=== PATIENT | male | born 1985 | race Hispanic/Latino ===

== ENCOUNTER 2023-11-16 09:13 | Emergency (ER) | payer OTHER, SELFPAY ==
--- NOTE | 2023-11-16 09:16 | ED_ITS ---
HPI - Extremity Injury (Upper) General Chief Complaint: Wound/Laceration Stated Complaint: wound L hand Time Seen by Provider: 11/16/23 09:16 History of Present Illness HPI narrative: Patient is a 38-year-old male with no significant past medical history comes into the ED from home complaining of laceration to his left hand while he was at work over 12 hours ago. 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 States that he did thoroughly wash it states that he did not present to the ED immediately because he did not think he needed stitches, however when he was at home with family states that he should be evaluated. He states that he is up-to-date on his tetanus, states it has been within 5 years. He has not complaining of any other symptoms. Patient is right-handed. Related Data Allergies Allergy/AdvReac Type Severity Reaction Status Date / Time No Known Drug Allergies Allergy Verified 11/16/23 09:24 Review of Systems Review of Systems Narrative: General: Denies fever, chills, weight loss HEENT: Denies headache, eye drainage, eye irritation, head trauma, sore throat, voice change Cardiovascular: Denies any chest pain, palpitations, shortness of breath, tachycardia Respiratory: Denies any shortness of breath, cough, wheeze, stridor GI/: Denies any abdominal pain, nausea, vomiting, diarrhea, bright red blood per rectum, melanotic stools, urinary frequency, urinary retention, dysuria, hematuria MSK: Denies any joint pain, muscle pains, swelling Skin: 2-1/2 cm laceration to the palmar aspect of the left hand Neuro: Denies any headache, lightheadedness, dizziness, fainting, weakness Psych: Denies SI/HI Patient History Social History Smoking Status: Never smoker Exam Narrative Exam Narrative: General: Cooperative, comfortable, well-developed, not in acute distress HEENT: Normocephalic, atraumatic, PERRLA, normal sclera, eyelids normal, Neck: Active full range of motion, atraumatic Chest: Normal to inspection, negative crepitus, no overlying erythema ecchymosis Respiratory: Normal respiratory effort, not in acute respiratory distress, clear to auscultation bilaterally negative cough, wheeze, tachypnea, rhonchi, rales Cardiology: Regular rate rhythm negative gallop, murmur, rubs GI/: Normal to inspection, soft, nonrigid, no tenderness to palpation, exam deferred MSK: Full range of active range of motion of all 4 extremities, atraumatic Skin: 2-1/2 cm laceration to the palmar aspect of the left hand superficial does not involve the tendon neurovascularly intact no other deformities Neuro: Alert awake oriented x3, moves all 4 extremities spontaneously, cranial nerves intact, able to answer all questions appropriately follows commands appropriately Psych: Cooperative, negative suicidal or homicidal ideations Initial Vital Signs Initial Vital Signs: Vital Signs Temperature 97.8 F 11/16/23 09:20 Pulse Rate 84 11/16/23 09:20 Respiratory Rate 16 11/16/23 09:20 Blood Pressure 110/71 11/16/23 09:20 Pulse Oximetry 100 11/16/23 09:20 Oxygen Delivery Method Room Air 11/16/23 09:20 Course Vital Signs Vital signs: Vital Signs - 8 hr 11/16/23 09:20 Temperature 97.8 F Pulse Rate 84 Respiratory Rate 16 Blood Pressure 110/71 Pulse Oximetry 100 Oxygen Delivery Method Room Air MDM - Extremity Injury (Upper) Medical Records Attestation: I reviewed the patient's medical records. [facility] [place] Narrative Medical decision making narrative: Patient is a 38-year-old male with no significant past medical history who presents to the emergency department for laceration to the palmar aspect of his left hand. Superficial no vascular or tendon issues. Neurovascularly intact not actively bleeding patient is up-to-date on his tetanus in the past 5 years. Given the fact that the laceration happened over 12 hours ago will not perform primary closure with sutures. Patient was given strict return precautions instructed to keep area clean and may use topical antibiotics, patient verbalized understanding of this agrees with being discharged home with outpatient follow up Discharge Plan Departure Patient Disposition: Home Clinical Impression: Laceration Activity Restrictions/Additional Instructions: Please read the discharge instructions sheet carefully and bring all papers to all doctor follow-up visits, as it may contain information that your doctor may want to see. Disease processes change and evolve, if your symptoms worsen or if you develop any new symptoms that are concerning to you please return for evaluation. Your evaluation today does not show any evidence of any life- threatening/serious illnesses requiring admission to the hospital or surgery. Please follow-up with your doctor for re-evaluation in approximately 1 day. Seek immediate medical attention for any worrisome symptoms. Stand Alone Forms: Patient Portal/API
[2023-11-16 09:20] VITALS: BP 110/71; PULSE 84; RESP 16; TEMP 36.6; O2SAT 100; BMI 25.0
--- NOTE | 2023-11-16 09:33 | PC.NURSE ---
Pt arrived to ED for left hand laceration that occured approximately 14 hours ago. Wound clean and dry. Skin surrounding wound is pink and dry. LAceration open to air and pt stated that he put some neosporin on it when it happened. Pt refused tetanus shot and vital signs.
== END 2023-11-16 09:40 | disposition home or self-care (01) ==
PROVIDERS: Emergency Provider Student in an Organized Health Care Education/Training Program
DX: S61.412A Laceration without foreign body of left hand, initial encounter (principal); W26.8XXA Contact with other sharp object(s), not elsewhere classified, initial encounter
CPT/HCPCS: 99282

== ENCOUNTER → 2024-01-06 15:55 | Outpatient (CLI) | payer OTHER, SELFPAY ==
[2024-01-06 17:05] LABS: Add Manual Diff / Slide Review NO; Basophils Absolute Auto 100 /uL (0-100); Basophils Percent Auto 0.8 % (0-2); Eosinophils Absolute Auto 400 /uL (0-450); Eosinophils Percent Auto 5.1 % (2-4); Hemoglobin 13.9 g/dL (13.5-17.5); Lymphocytes Absolute Auto 3300 /uL (1100-4500); Lymphocytes Percent Auto 46.7 % (25-40); Mean Corpuscular HGB Conc 32.4 % (30-36); Mean Corpuscular Hemoglobin 23.9 PG (26-34); Mean Corpuscular Volume 73.7 fL (80-100); Monocytes Absolute Auto 500 /uL (0-900); Monocytes Percent Auto 7.1 % (3-14); Neutrophils Absolute Auto 2800 /uL (1500-7000); Neutrophils Percent Auto 40.3 % (50-75); Platelet Count 231 X10^3/uL (150-400); Red Blood Cell Count 5.83 X10^6/uL (4.5-5.9)
[2024-01-06 17:24] LABS: Alanine Aminotransferase 28 IU/L (<50); Albumin 4.3 g/dL (3.5-5.0); Albumin Globulin Ratio 1.4 (1.0-2.8); Alkaline Phosphatase 57 U/L (38-126); Aspartate Aminotransferase 30 IU/L (17-59); BUN Creatinine Ratio 13.9 (6-22); Bilirubin Total 0.3 mg/dL (0.2-1.3); Blood Urea Nitrogen 15 mg/dL (9-20); Calcium 9.4 mg/dL (8.4-10.2); Carbon Dioxide 28 mmol/L (22-32); Chloride 106 mmol/L (98-107); Cholesterol 171 mg/dL (140-199); Estimated Glomerular Filt Rate > 60 mL/min (>60); Globulin 3.1 g/dL (1.7-4.1); Glucose 100 mg/dL (70-100); HDL Cholesterol 45 mg/dL (40-60); HEMOLYSIS < 15 (0-50); LDL Cholesterol Calculated 60 mg/dL (<100); Potassium 4.1 mmol/L (3.4-5.1); Sodium 136 mmol/L (137-145); Total Protein 7.4 g/dL (6.3-8.2); Triglycerides 330 mg/dL (35-150)
[2024-01-06 17:26] LABS: Hemoglobin A1C% w Est Avg Glu 5.6 % (4.0-6.0)
[2024-01-06 18:32] LABS: Urine N gonorrhoeae NOT DETECTED
[2024-01-06 18:37] LABS: Urine Chlamydia NOT DETECTED
[2024-01-07 02:10] LABS: HBsAg Screen Negative (Negative); Hepatitis A Antibody IgM Negative (Negative); Hepatitis B Core Antibody IgM Negative (Negative); Hepatitis C Antibody Non Reactive (Non Reactive)
[2024-01-08 20:08] LABS: Treponema pallidum Antibodies Non Reactive (Non Reactive)
[2024-01-09 14:51] LABS: HIV 1 & 2 Ab/Ag 4th Gen Combo NEGATIVE (NEGATIVE)
== END ==
LOC: LAB 15:57
PROVIDERS: PCP Family Medicine; Referring Provider Family Medicine; Visit Provider Family Medicine
DX: A60.9 Anogenital herpesviral infection, unspecified (principal); Z86.19 Personal history of other infectious and parasitic diseases; Z72.51 High risk heterosexual behavior; Z11.3 Encounter for screening for infections with a predominantly sexual mode of transmission; Z76.89 Persons encountering health services in other specified circumstances; Z68.26 Body mass index [BMI] 26.0-26.9, adult; Z13.220 Encounter for screening for lipoid disorders
CPT/HCPCS: 36415; 80053; 80061; 80074; 83036; 85025; 86695; 86696; 86780; 87389; 87491; 87591